=== PATIENT | male | born 1990 | race Caucasian/White ===

== ENCOUNTER 2016-11-24 08:14 | Emergency (ER) | payer OTHER ==
--- NOTE | 2016-11-24 09:09 | EDPHY ---
H & P Smoking Status: Never smoked Time Seen by Provider: 11/24/16 09:02 HPI/ROS: CHIEF COMPLAINT: Laceration left palm HISTORY OF PRESENT ILLNESS: 26-year-old male presents to the emergency department by private vehicle with a laceration to his left palm. The patient was at home just prior to arrival and was using a knife which accidentally slipped and cut the palm of his left hand. He is right-hand dominant. Describes the pain as mild. He was able to control the bleeding with firm direct pressure. Denies any other trauma or injury. He is unsure of his last tetanus shot. ROS: Denies numbness or tingling in his fingers, pain in his left wrist or elbow. Denies retained foreign body. (Carolyn Black) Past Medical/Surgical History: Pituitary tumor (Carolyn Black) Social History: and lives in [place] (Carolyn Black) Physical Exam: On examination, large 5 cm laceration to the base of the palm left hand on the medial aspect. There is no active bleeding noted. No evidence of retained foreign body. No tendon injury visualized. Normal sensation to light touch with normal 2 point discrimination. Strong radial pulse at the left wrist. Full range of motion of his fingers. No palpable bony tenderness or deformity. (Carolyn Black) Constitutional: Initial Vital Signs Temperature (C) 36.5 C 11/24/16 08:22 Heart Rate 77 11/24/16 08:22 Respiratory Rate 18 11/24/16 08:22 Blood Pressure 126/69 H 11/24/16 08:22 O2 Sat (%) 98 11/24/16 08:22 O2 Delivery Mode Room Air Allergies/Adverse Reactions: No Known Allergies Allergy (Unverified 11/24/16 08:22) Home Medications: Medication Instructions Recorded NK [No Known Home Meds] 11/24/16 MDM/Departure - MDM Procedures: Laceration repair. Verbal consent was obtained from the patient. The 5 cm laceration on the left palm was anesthetized using 1% lidocaine with epinephrine. The wound was irrigated with saline, draped and explored to its base with a gloved finger. There were no deep structures involved. No tendon injury was identified. The wound was repaired with 4 0 Ethilon, 10 sutures. The wound repair was simple. The procedure was performed by myself. (Carolyn Black) Medications Given: Discontinued Medications Diphtheria/Tetanus/Acell Pertussis (Boostrix) 0.5 ml IM .ONCE ONE Stop: 11/24/16 09:21 Last Admin: 11/24/16 09:30 Dose: 0.5 ml ED Course/Re-evaluation: Patient's tetanus shot was updated. Patient sustained a large left palm laceration which was repaired. There is no tendon or tendon sheath injury visualized. See procedure note. Patient was given wound care precautions. (Candis Blackrina Susanne) I did not see this patient while he was in the emergency department. However his care was discussed with PA while the patient was in the department. I agree with treatment plan and management (Benjamin Talamantes) - Depart Disposition: Home, Routine, Self-Care Clinical Impression: Laceration of left palm Qualifiers: Encounter type: initial encounter Qualified Code(s): S61.412A - Laceration without foreign body of left hand, initial encounter Condition: Good Instructions: Care For Your Stitches (ED), Laceration (ED), Acute Wounds (ED) Additional Instructions: Wound Care Follow-Up: Removal of sutures in 10 days. Suture removal is complimentary in uncomplicated cases. Infection or abnormal findings would require reevaluation by the MD. In that case, you may be billed. Return if you notice any signs or symptoms of infection such as redness, swelling, increased pain, fever, purulent drainage. Keep wound dry, clean and protected. Your given a tetanus shot today in the emergency department. Referrals: Ruben English MD [Primary Care Provider] - As per Instructions
[2016-11-24] MEDS ORDERED: TDAP ADULT 0.5 ML INJ (BOOSTRIX) IM ONE (09:20)
[2016-11-24 10:46] VITALS: BP 123/78; PULSE 75; RESP 17; TEMP 98.4; O2SAT 96
== END 2016-11-24 10:45 | disposition home or self-care (01) ==
DX: S61.412A Laceration without foreign body of left hand, initial encounter (principal); Z23 Encounter for immunization; W26.0XXA Contact with knife, initial encounter; Y92.009 Unspecified place in unspecified non-institutional (private) residence as the place of occurrence of the external cause; Y99.8 Other external cause status; Y93.89 Activity, other specified